=== PATIENT | female | born 1945 | race Caucasian/White ===

== ENCOUNTER → 2018-11-07 | Outpatient (CLI) | payer MEDICARE | END | disposition home or self-care (01) | LOC: PETCFH 09:52 | PROVIDERS: ATTEND Internal Medicine Hematology & Oncology | DX: Z13.818 Encounter for screening for other digestive system disorders (principal); R91.1 Solitary pulmonary nodule; K44.9 Diaphragmatic hernia without obstruction or gangrene; K57.30 Diverticulosis of large intestine without perforation or abscess without bleeding; I70.0 Atherosclerosis of aorta; C43.9 Malignant melanoma of skin, unspecified; C78.00 Secondary malignant neoplasm of unspecified lung; Z90.49 Acquired absence of other specified parts of digestive tract | CPT/HCPCS: 78816; A9552 ==

== ENCOUNTER 2019-03-04 10:39 | Outpatient (CLI) | payer MEDICARE | END 2019-03-04 23:59 | disposition home or self-care (01) | LOC: PETCFH 10:39 | PROVIDERS: ATTEND Internal Medicine Hematology & Oncology | DX: C43.59 Malignant melanoma of other part of trunk (principal); N28.89 Other specified disorders of kidney and ureter; E03.2 Hypothyroidism due to medicaments and other exogenous substances; Z90.49 Acquired absence of other specified parts of digestive tract; Z85.118 Personal history of other malignant neoplasm of bronchus and lung | CPT/HCPCS: 78816; A9552 ==

== ENCOUNTER 2019-06-20 12:13 | Outpatient (CLI) | payer MEDICARE | END 2019-06-20 23:59 | disposition home or self-care (01) | LOC: PETCFH 12:13 | PROVIDERS: ATTEND Internal Medicine Hematology & Oncology | DX: Z13.818 Encounter for screening for other digestive system disorders (principal); C78.02 Secondary malignant neoplasm of left lung; C43.9 Malignant melanoma of skin, unspecified | CPT/HCPCS: 78816; A9552 ==

== ENCOUNTER 2019-08-01 13:08 | Emergency (ER) | payer MEDICARE ==
[~2019-08-01] VITALS: Ht 167.6 cm; Wt 70.2 kg
--- NOTE | 2019-08-01 14:17 | NUR ---
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
--- NOTE | 2019-08-01 14:49 | NUR ---
PT HAS CO OF CHEST PAIN AND COUGH THAT HAS GOTTEN WORSE IN THE PAST FEW DAYS. PT HAS ST [address] MELONOMA W METS. VARNISH FINISHER APPLIED, VS STABLE. PT NOT IN DISTRESS, DENIES N/V/D OR FEVER
[2019-08-01 14:57] LABS: BASOPHILS # (AUTO) 0.04 x10^3/uL (0-0.1); BASOPHILS % (AUTO) 0 % (0-1); EOSINOPHILS # (AUTO) 0.15 x10^3/uL (0-0.4); EOSINOPHILS % (AUTO) 2 % (1-7); LYMPHOCYTES # (AUTO) 1.33 x10^3/uL (1-3.4); LYMPHOCYTES % (AUTO) 14 % (22-44); MD NO; MEAN CORPUSCULAR HEMOGLOBIN 31.1 pg (27.0-34.8); MEAN CORPUSCULAR HGB CONC 33.1 g/dL (32.4-35.8); MONOCYTES # (AUTO) 0.67 x10^3/uL (0.2-0.8); MONOCYTES % (AUTO) 7 % (2-9); NEUTROPHILS # (AUTO) 7.58 x10^3/uL (1.8-6.8); NEUTROPHILS % (AUTO) 78 % (42-75); PLATELET COUNT 274 x10^3/uL (130-400); RED BLOOD COUNT 4.64 x10^6/uL (3.82-5.3); RED CELL DISTRIBUTION WIDTH 13.2 % (9.6-15.2)
[2019-08-01 15:11] LABS: ALBUMIN 3.8 g/dL (3.4-5.0); ANION GAP 8 mmol/L (5-15); CALCIUM 9.2 mg/dL (8.5-10.1); CHLORIDE 106 mmol/L (98-107)
[2019-08-01 15:18] LABS: ALANINE AMINOTRANSFERASE 48 U/L (12-78); ALKALINE PHOSPHATASE 203 U/L (45-117); BILIRUBIN,TOTAL 0.4 mg/dL (0.2-1.0); CREATININE 0.78 mg/dL (0.55-1.02); TOTAL PROTEIN 7.5 g/dL (6.4-8.2); TROPONIN I < 0.015 ng/mL (0.000-0.045)
[2019-08-01 16:06] VITALS: BP 110/74
--- NOTE | 2019-08-01 16:07 | NUR ---
PT RESTING. GAVE POC. PT REQUESTING COUGH MEDICINE
--- NOTE | 2019-08-01 16:19 | NUR ---
Patient/Caregiver given discharge instructions and they have confirmed that they understand the instructions. Patient ambulatory with steady gait.
== END 2019-08-01 16:32 | disposition home or self-care (01) ==
LOC: ED 15:10
DX: J20.8 Acute bronchitis due to other specified organisms (principal)
CPT/HCPCS: 36415; 71045; 80053; 83690; 84484; 85025; 93005; 99284

== ENCOUNTER → 2019-10-09 | Outpatient (CLI) | payer MEDICARE | END | disposition home or self-care (01) | LOC: PETCFH 11:24 | PROVIDERS: ATTEND Internal Medicine Hematology & Oncology | DX: C78.00 Secondary malignant neoplasm of unspecified lung (principal); C43.9 Malignant melanoma of skin, unspecified; J84.10 Pulmonary fibrosis, unspecified; Z13.818 Encounter for screening for other digestive system disorders | CPT/HCPCS: 78816; A9552 ==

== ENCOUNTER 2020-02-10 09:31 | Outpatient (CLI) | payer MEDICARE | END 2020-02-10 23:59 | disposition home or self-care (01) | LOC: PETCFH 09:31 | PROVIDERS: ATTEND Internal Medicine Hematology & Oncology | DX: C78.00 Secondary malignant neoplasm of unspecified lung (principal); C43.9 Malignant melanoma of skin, unspecified; K44.9 Diaphragmatic hernia without obstruction or gangrene; N28.1 Cyst of kidney, acquired | CPT/HCPCS: 78816; A9552 ==

== ENCOUNTER → 2020-06-09 | Outpatient (CLI) | payer MEDICARE | END | disposition home or self-care (01) | LOC: PETCFH 09:37 | PROVIDERS: ATTEND Internal Medicine Hematology & Oncology | DX: C78.00 Secondary malignant neoplasm of unspecified lung (principal); C43.9 Malignant melanoma of skin, unspecified; J98.4 Other disorders of lung; K52.9 Noninfective gastroenteritis and colitis, unspecified | CPT/HCPCS: 78816; A9552 ==